=== PATIENT | male | born 1990 | race Caucasian/White ===

== ENCOUNTER 2016-09-27 11:27 | Emergency (ER) | payer MEDICAID ==
[2016-09-27] MEDS ORDERED: SODIUM CHLORIDE 0.9% 1,000 ML ONE (17:51)
[2016-09-27] MEDS ORDERED: ONDANSETRON 4 MG VIAL ONE (17:51)
[2016-09-27] MEDS ORDERED: MULTIVITS ADULT INJ 10 ML, THIAMINE 100 MG, FOLIC ACID INJ 1 MG in SODIUM CHLORIDE 0.9%... IV ONE ×3 (17:55)
== END 2016-09-27 20:25 | disposition home or self-care (01) ==
LOC: ER 11:27
DX: F10.20 Alcohol dependence, uncomplicated (principal); R11.0 Nausea; F41.1 Generalized anxiety disorder; F12.10 Cannabis abuse, uncomplicated; F17.210 Nicotine dependence, cigarettes, uncomplicated; Z79.899 Other long term (current) drug therapy
CPT/HCPCS: 36415; 80053; 80307; 80320; 80329; 81001; 84439; 84443; 85025; 85610; 96361; 96365; 96375